=== PATIENT | male | born 1945 | race Caucasian/White ===

== ENCOUNTER 2023-12-10 23:00 | Emergency (ER) | payer OTHER, MEDICARE ==
[2023-12-10 23:02] VITALS: PULSE 108
[2023-12-10] MEDS: Lidocaine 2% HCl 11 ML Jelly Filled Syringe TOP ONE (23:05)
[2023-12-10 23:18] VITALS: BP 153/84
== END 2023-12-10 23:33 ==
LOC: LL.ED 23:00
DX: Z46.6 Encounter for fitting and adjustment of urinary device (principal); Z88.0 Allergy status to penicillin; Z88.5 Allergy status to narcotic agent; Z88.6 Allergy status to analgesic agent; Z88.8 Allergy status to other drugs, medicaments and biological substances
CPT/HCPCS: 51702; 99283; A9270-GY

== ENCOUNTER 2023-12-27 23:15 | Emergency (ER) | payer OTHER, MEDICARE ==
[2023-12-27] MEDS: fentaNYL 50 MCG/ML SDV IVPUSH ONE (23:55)
[2023-12-27 23:59] LABS: BASOPHILS ABSOLUTE AUTO 0.03 K/uL (0.00-0.20); BASOPHILS PERCENT AUTO 0.3 % (0.0-2.0); EOSINOPHILS ABSOLUTE AUTO 0.29 K/uL (0.00-0.50); EOSINOPHILS PERCENT AUTO 2.6 % (0.0-5.0); HEMATOCRIT 45.5 % (39.0-49.0); HEMOGLOBIN 15.3 g/dL (13.1-16.8); LYMPHOCYTES ABSOLUTE AUTO 1.63 K/uL (0.50-3.50); LYMPHOCYTES PERCENT AUTO 14.6 % (10.0-50.0); MEAN CORPUSCULAR HEMOGLOBIN 29.7 pg (28.2-33.3); MEAN CORPUSCULAR HGB CONC 33.6 g/dL (31.7-36.0); MEAN CORPUSCULAR VOLUME 88.2 fL (84.0-98.0); MONOCYTES PERCENT AUTO 9.9 % (2.0-14.0); NEUTROPHILS ABSOLUTE AUTO 8.11 K/uL (1.40-7.00); NEUTROPHILS PERCENT AUTO 72.6 % (45.0-80.0); PLATELET COUNT,PLT 184 K/uL (150-350); RED BLOOD CELL COUNT 5.16 M/uL (4.33-5.41); RED CELL DISTRIBUTION WIDTH 13.9 % (11.2-14.1); WHITE BLOOD CELL COUNT,WBC 11.2 K/uL (4.0-10.2)
[2023-12-28 00:20] LABS: ALANINE AMINOTRANSFERASE,ALT 13 U/L (12-78); ALBUMIN 3.7 g/dL (3.4-5.0); ALKALINE PHOSPHATASE 118 IU/L (46-116); ANION GAP 10.5 meq/L (7-15); ASPARTATE AMNIOTRANSFERASE,AST 12 U/L (15-37); BILIRUBIN TOTAL 0.8 mg/dL (0.2-1.0); BLOOD UREA NITROGEN,BUN 17 mg/dL (7-18); CALCIUM 9.1 mg/dL (8.5-10.1); CARBON DIOXIDE,CO2 33.1 mmol/L (21.0-32.0); CHLORIDE,CL 101 mmol/L (98-107); CREATININE 1.27 mg/dL (0.51-1.17); ESTIMATED GFR 58 mL/min (>=60); GLUCOSE RANDOM 116 mg/dL (70-99); INR 1.1 (0.9-1.1); POTASSIUM,K 3.6 mmol/L (3.5-5.1); PROTEIN TOTAL,TP 6.8 g/dL (6.4-8.2); PROTHROMBIN TIME 11.1 SEC (9.0-11.1); SODIUM,NA 141 mmol/L (136-145)
[2023-12-28] MEDS ORDERED: Naloxone 0.4 MG/ML SDV IVPUSH PRN (00:24)
[2023-12-28] MEDS: fentaNYL 50 MCG/ML SDV IVPUSH ONE (00:29)
== END 2023-12-28 00:45 ==
LOC: LL.ED 23:15
DX: N40.0 Benign prostatic hyperplasia without lower urinary tract symptoms (principal); N48.89 Other specified disorders of penis; Z96.0 Presence of urogenital implants; Z88.0 Allergy status to penicillin; Z88.5 Allergy status to narcotic agent; Z88.1 Allergy status to other antibiotic agents; Z88.8 Allergy status to other drugs, medicaments and biological substances; Z88.6 Allergy status to analgesic agent
CPT/HCPCS: 36415; 51798; 80053; 85025; 85610; 96374; 96376; 99284; J3010